=== PATIENT | female | born 1985 | race Caucasian/White ===

== ENCOUNTER → 2019-02-27 14:32 | Outpatient (BNVA) | payer BC, SELFPAY | PROVIDERS: Family Provider Nurse Practitioner Family; PCP Family Medicine; Visit Provider Family Medicine | DX: Z13.6 Encounter for screening for cardiovascular disorders (principal); M77.11 Lateral epicondylitis, right elbow | CPT/HCPCS: 36415; 80053; 85025 ==

== ENCOUNTER → 2021-01-20 14:33 | Outpatient (BNVA) | payer OTHER, SELFPAY | PROVIDERS: Family Provider Nurse Practitioner Family; PCP Family Medicine; Visit Provider Nurse Practitioner Family | DX: Z20.822 Contact with and (suspected) exposure to COVID-19 (principal); J06.9 Acute upper respiratory infection, unspecified | CPT/HCPCS: 87635 ==

== ENCOUNTER 2021-07-01 11:54 | Emergency (ER) | payer OTHER, SELFPAY ==
[2021-07-01 12:11] VITALS: BP 119/75; PULSE 73; RESP 16; TEMP 36.6; O2SAT 98; BMI 23.9
--- NOTE | 2021-07-01 12:22 | W.ED.GENADLT ---
HPI - General Adult General: Chief complaint: Abdominal Pain Stated complaint: Severe ABD Pain Time Seen by Provider: 07/01/21 12:21 History of Present Illness: Patient is a 35-year-old female with a history of prior cholecystectomy presenting to the emergency room with an hour of generalized abdominal pain. Patient tells me that she was at home when this pain suddenly started. Patient reports nausea without any vomiting. Pain was colicky intermittent similar to her prior biliary colic. Patient says the pain lasted for 25 minutes before resolving with Aleve. Patient denies any diarrhea, melena/hematochezia, complaints, prior history of renal colic, new vaginal discharge or bleeding. Patient denies any changes p.o. intake. Patient has any fever or chills, cough, runny nose, sore throat, chest pain, short breath or palpitation. Onset: 1 hr ago Duration:25 minutes Location:home Severity: moderate Associated symptoms: Reports nausea; Deny chest pain, dyspnea, rash, palpitations or vomiting Review of Systems Const: Denies: fever(s) or chills Eyes: Denies: change in vision ENMT: Denies: mouth pain Card: Denies: chest pain or palpitations Resp: Denies: dyspnea or non-productive cough GI: Reports: abdominal pain and nausea; Denies: vomiting or diarrhea : Denies: dysuria Musc: Denies: extremity pain Skin/Breast: Denies: rash or new lesions Neuro: Denies: weakness in extremities Psych: Reports: other (Normal mood) Maurice/Lymph: Denies: easy bruising PFSH ED PFSH: Medical History No pertinent past medical history Surgical History H/O breast augmentation H/O section History of cholecystectomy Family History Other Diabetes Hypertension Social History Smoking and tobacco status: never smoked Alcohol intake: never Physical Exam Const: COMMON NORMALS: alert HENMT: COMMON NORMALS: atraumatic HEAD & SCALP: atraumatic MOUTH: moist mucous membranes not abnormal Eye: COMMON NORMALS: EOMs intact bilaterally and conjunctivae normal CONJUNCTIVA: Yes conjunctivae normal Neck/C-Spine: COMMON NORMALS: full ROM and supple Resp: COMMON NORMALS: normal respiratory effort and clear to auscultation bilaterally AUSCULTATION: clear to auscultation bilaterally Cardio: COMMON NORMALS: regular rate RATE: regular rate GI: COMMON NORMALS: Soft to palpation and non-tender PALPATION: Yes Soft to palpation OTHER: No focal TTP. NO guarding rebound, guarding, rigidity. No CVA tenderness to percussion. Neg Valentine/Neg McBurney's point tenderness, no suprabupic tenderness to palpation. Extremity: COMMON NORMALS: full ROM Neuro: SENSORIUM/ORIENTATION: Yes alert MOTOR EXAM: No Abnormal motor strength present and Other motor observations present (no focal motor deficits) Psych: COMMON NORMALS: speech normal SPEECH: Yes normal speech MOOD & AFFECT: Yes euthymic mood Course Vital Signs: Vital signs: Vital Signs Temperature 98 F 07/01/21 12:11 Pulse Rate 75 07/01/21 14:57 Respiratory Rate 16 07/01/21 12:11 Blood Pressure 110/77 07/01/21 14:57 Pulse Oximetry 96 07/01/21 14:57 [facility] - General Adult Medical Decision Making Patient is a 35-year-old female with history of prior cholecystectomy presenting to the emergency room with complaints of 25 minutes of generalized abdominal pain. On physical exam, patient is hemodynamically stable. Currently, patient has no focal tenderness palpation, no guarding or rebound tenderness. White count 11.7. CMP unremarkable. Urine pending pending. At 2:30 PM, patient elects to leave AGAINST MEDICAL ADVICE prior to all labs resulting. Patient tells me that she is concerned about appendicitis. I have offered a CT scan however patient says that she would not like to have a CT scan at this time. Patient tells me that she would like to go home because she has concern family member at home. Have given patient strict return precautions for any signs of worsening pain, nausea/vomiting, fever/chills, or any new or concerning complaints. Patient verbalized understanding. Discussed with patient that we do not have all the test including urine and at this time. Patient reiterates desire to go home prior to full lab evaluation and medication treatment today. Considered appendicitis however unlikely at this time given lack of signs and sx's to suggest appendicitis as etiology. Pt counseled that appendicitis may later develop and given appendicitis precautions and instructed to return if any development of RLQ tenderness, worsening or continued abdominal pain, or any fevers, chills, nausea, vomiting, or any other concerning signs or symptoms. Patient electing to leave AMA. Patient counseled regarding risks of leaving including severe morbidity, brain , hypoxia, arrythmia, , chest pain, or any other unwanted consequences of leaving against medical advice today. Patient verbalizes understanding of the risks and still wishes to leave AMA. Signed AMA paperwork. Patient advised that patient is welcome to return at any time. Was instructed that patient may come back if symptoms continue to persist and that emergent adverse conditions have not fully been ruled out. Patient is A&Ox3 and has capacity and is of sound mind to make decisions. Disposition: AMA Lab Data : 07/01/21 13:10 07/01/21 13:10 Laboratory Results WBC 11.7 10^3/uL (4.0-10.0) H 07/01/21 13:10 RBC 4.64 10^6/uL (4.1-5.3) 07/01/21 13:10 Hgb 14.9 g/dL (11.5-15.3) 07/01/21 13:10 Hct 42.7 % (37.0-47.0) 07/01/21 13:10 MCV 92.0 fl (81-99) 07/01/21 13:10 MCH 32.1 pg (28.0-34.0) 07/01/21 13:10 MCHC 34.9 g/dL (30.0-36.0) 07/01/21 13:10 RDW 12.6 % (12.1-15.1) 07/01/21 13:10 Plt Count 230 10^3/cmm (130-400) 07/01/21 13:10 MPV 9.9 fL (7.4-10.4) 07/01/21 13:10 Neut % (Auto) 86.1 % 07/01/21 13:10 Lymph % (Auto) 7.4 % 07/01/21 13:10 [place] % (Auto) 5.4 % 07/01/21 13:10 Eos % (Auto) 0.3 % 07/01/21 13:10 Baso % (Auto) 0.3 % 07/01/21 13:10 Neut # (Auto) 10.06 10^3/uL (1.8-7.7) H 07/01/21 13:10 Lymph # (Auto) 0.9 10^3/uL (0.8-4.8) 07/01/21 13:10 [place] # (Auto) 0.6 10^3/uL (0.2-0.9) 07/01/21 13:10 Eos # (Auto) 0.0 10^3/uL (0.0-0.8) 07/01/21 13:10 Baso # (Auto) 0.0 10^3/uL (0.0-0.1) 07/01/21 13:10 Nucleated RBC % (auto) 0 % 07/01/21 13:10 Nucleated RBCs # 0.0 /100WBC 07/01/21 13:10 Sodium 137 mmol/L (136-145) 07/01/21 13:10 Potassium 3.7 mmol/L (3.5-5.1) 07/01/21 13:10 Chloride 102 mmol/L (98-107) 07/01/21 13:10 Carbon Dioxide 25 mmol/L (22-29) 07/01/21 13:10 Anion Gap 13.7 (5-19) 07/01/21 13:10 BUN 13 mg/dL (6-20) 07/01/21 13:10 Creatinine 0.5 mg/dL (0.5-0.9) 07/01/21 13:10 GFR Calculation 139.6 mL/min (90-130) H 07/01/21 13:10 Glucose 96 mg/dL (65-115) 07/01/21 13:10 Calculated Osmolality 284 mOsm/kg (285-295) L 07/01/21 13:10 Lactate 0.9 mmol/L (0.5-2.2) 07/01/21 13:10 Calcium 8.4 mg/dL (8.5-10.5) L 07/01/21 13:10 Total Bilirubin 1.0 mg/dL (0.15-1.2) 07/01/21 13:10 AST 167 U/L (0-32) H 07/01/21 13:10 ALT 100 U/L (0-33) H 07/01/21 13:10 Alkaline Phosphatase 85 IU/L (35-105) 07/01/21 13:10 Total Protein 7.5 g/dL (6.6-8.7) 07/01/21 13:10 Albumin 4.5 g/dL (3.5-5.2) 07/01/21 13:10 Globulin 3.0 g/dL (1.3-4.6) 07/01/21 13:10 Lipase 63 U/L (13-60) H 07/01/21 13:10 HCG, Qual Cancelled 07/01/21 13:10 Urine Color Yellow (Yellow) 07/01/21 14:30 Urine Appearance Clear (CLEAR) 07/01/21 14:30 Urine pH 9 (5-7) H 07/01/21 14:30 Ur Specific [place] 1.010 (1.005-1.030) 07/01/21 14:30 Urine Protein Neg (Negative) 07/01/21 14:30 Urine Glucose (UA) Norm (Normal) 07/01/21 14:30 Urine Ketones Negative (Negative) 07/01/21 14:30 Urine Blood Neg (Negative) 07/01/21 14:30 Urine Nitrate Negative (Negative) 07/01/21 14:30 Urine Bilirubin Neg (Negative) 07/01/21 14:30 Prot Sulfosalicylic Acd Negative (Negative) 07/01/21 14:30 Urine Urobilinogen Norm mg/dL (Negative) 07/01/21 14:30 Ur Leukocyte Esterase Negative (Negative) 07/01/21 14:30 Discharge Plan Discharge Patient Disposition: Left Against Medical Advice Clinical Impression: Abdominal pain Condition: Stable Referrals: Em Vick DO [Primary Care Provider] - Discharge Diet: Advance as tolerated Discharge Activity: Increase activity as tolerated Patient Instructions: Abdominal Pain (ED) Coding Level of Care Code ED Supervisor Yard for Robert Fwd Exam Comprehensive
[2021-07-01 13:32] LABS: Basophils % 0.3 %; Eosinophils % 0.3 %; Hematocrit 42.7 % (37.0-47.0); Hemoglobin 14.9 g/dL (11.5-15.3); Lymphocytes # 0.9 10^3/uL (0.8-4.8); Lymphocytes % 7.4 %; Mean Corpuscular HGB Conc 34.9 g/dL (30.0-36.0); Mean Corpuscular Hemoglobin 32.1 pg (28.0-34.0); Mean Platelet Volume 9.9 fL (7.4-10.4); Monocytes # 0.6 10^3/uL (0.2-0.9); Monocytes % 5.4 %; Neutrophils # 10.06 10^3/uL (1.8-7.7); Neutrophils % 86.1 %; Nucleated Red Blood Cells % 0 %; Platelet Count 230 10^3/cmm (130-400); Red Blood Count 4.64 10^6/uL (4.1-5.3); Red Cell Distribution Width 12.6 % (12.1-15.1); White Blood Count 11.7 10^3/uL (4.0-10.0)
[2021-07-01 13:45] LABS: Lactate (Lactic Acid level) 0.9 mmol/L (0.5-2.2)
[2021-07-01 13:46] LABS: Alanine Aminotransferase 100 U/L (0-33); Albumin Level 4.5 g/dL (3.5-5.2); Alkaline Phosphatase 85 IU/L (35-105); Anion Gap 13.7 (5-19); Aspartate Amino Transferase 167 U/L (0-32); Blood Urea Nitrogen 13 mg/dL (6-20); Calcium 8.4 mg/dL (8.5-10.5); Carbon Dioxide 25 mmol/L (22-29); Chloride 102 mmol/L (98-107); Glomerular Filtration Rate 139.6 mL/min (90-130); Glucose 96 mg/dL (65-115); Lipase 63 U/L (13-60); Osmolality Calculated 284 mOsm/kg (285-295); Potassium 3.7 mmol/L (3.5-5.1); Sodium 137 mmol/L (136-145); Total Protein 7.5 g/dL (6.6-8.7)
[2021-07-01] MEDS: sodium chloride 0.9% 1,000 ML 999 ML IV (13:58)
[2021-07-01 14:57] VITALS: BP 110/77; PULSE 75; O2SAT 96
[2021-07-01 15:40] LABS: Add Urine Microscopic? NO; Charge for UA Resulting for Rev
[2021-07-01 16:06] LABS: Bilirubin Urine Neg (Negative); Blood Urine Neg (Negative); Glucose Urine UA Norm (Normal); Ketones Urine Negative (Negative); Leukocyte Esterase Urine Negative (Negative); Nitrate Urine Negative (Negative); Protein Urine Neg (Negative); Sulfosalicylic Acid Urine Negative (Negative); Urine Appearance Clear (CLEAR); Urine Color Yellow (Yellow); Urobilinogen Urine Norm (Negative); pH Urine 9 (5-7)
== END 2021-07-01 14:59 | disposition left against medical advice (07) ==
PROVIDERS: Emergency Provider Emergency Medicine; PCP Family Medicine
DX: R10.84 Generalized abdominal pain (principal); Z90.49 Acquired absence of other specified parts of digestive tract; Z53.29 Procedure and treatment not carried out because of patient's decision for other reasons
CPT/HCPCS: 80053; 81003; 83605; 83690; 85025; 99283; J7030

== ENCOUNTER → 2023-10-04 09:25 | Outpatient (BNVA) | payer OTHER, SELFPAY | PROVIDERS: PCP Family Medicine; Visit Provider Nurse Practitioner Women's Health | DX: Z12.4 Encounter for screening for malignant neoplasm of cervix (principal) | CPT/HCPCS: 87624 ==

== ENCOUNTER → 2024-04-20 12:11 | Outpatient (BNVA) | payer OTHER, SELFPAY | PROVIDERS: PCP Family Medicine; Visit Provider Family Medicine | DX: Z13.6 Encounter for screening for cardiovascular disorders (principal) | CPT/HCPCS: 80053; 80061; 84443; 85025 ==

== ENCOUNTER 2024-12-13 11:07 | Outpatient (RCR) | payer OTHER, SELFPAY | END 2024-12-15 23:59 | disposition home or self-care (01) | LOC: SPT 11:07 | PROVIDERS: Visit Provider Nurse Practitioner Women's Health | DX: N39.3 Stress incontinence (female) (male) (principal); N81.4 Uterovaginal prolapse, unspecified | CPT/HCPCS: 97161 ==

== ENCOUNTER 2025-01-03 11:44 | Outpatient (CLI) | payer OTHER, SELFPAY ==
--- NOTE | 2025-01-03 11:52 | XRR_ITS ---
PROCEDURE INFORMATION: Exam: XR Chest Exam date and time: 01/03/2025 12:04 PM Age: 39 years old Clinical indication: PT states chronic cough & SOB on extertion x few years. TECHNIQUE: Imaging protocol: Radiologic exam of the chest. Views: 2 views. COMPARISON: No relevant prior studies available. FINDINGS: Lungs: Mediastinum and vicky appear unremarkable. Lungs are clear. No lung mass. Pleural spaces: No pneumothorax. No pleural effusion. Heart/Mediastinum: Heart size normal. Bones/joints: Bone mineralization appears unremarkable. Dextroscoliosis thoracic spine. Soft tissues: Bilateral breast implants suggested. Organs: Findings compatible with cholecystectomy clips. XR/XR chest 2V* [id number] IMPRESSION: 1. No acute process demonstrated. 2. Dextroscoliosis thoracic spine.
== END 2025-01-03 11:45 | disposition home or self-care (01) ==
PROVIDERS: PCP Family Medicine; Visit Provider Otolaryngology
DX: R05.3 Chronic cough (principal); M41.24 Other idiopathic scoliosis, thoracic region
CPT/HCPCS: 71046